=== PATIENT | male | born 1985 | race African-American/Black ===

== ENCOUNTER 2023-06-17 18:26 | Emergency (ER) | payer OTHER ==
[~2023-06-17] VITALS: Ht 198.1 cm; Wt 111.1 kg
[2023-06-17 18:44] VITALS: BP 143/101; TEMP 98.4
[2023-06-17] MEDS: LIDOCAINE 1%-EPI 1:100,000 20 ML VIAL TP ONE (20:40)
[2023-06-17] MEDS ORDERED: LIDOCAINE 1%-EPI 1:100,000 20 ML VIAL ONE (21:28)
[2023-06-17 22:02] VITALS: O2SAT 98
== END 2023-06-17 22:02 | disposition home or self-care (01) ==
LOC: ER 18:48
DX: S30.1XXA Contusion of abdominal wall, initial encounter (principal); X58.XXXA Exposure to other specified factors, initial encounter; Y93.89 Activity, other specified; Y92.89 Other specified places as the place of occurrence of the external cause; Y99.8 Other external cause status
CPT/HCPCS: 99284; 10160; J3490; 49083